=== PATIENT | male | born 1990 | race African-American/Black ===

== ENCOUNTER 2017-07-06 22:23 | Emergency (ER) | payer OTHER ==
[~2017-07-06] VITALS: Ht 188 cm; Wt 117.6 kg
[2017-07-06 22:31] VITALS: BP 151/98
--- NOTE | 2017-07-06 23:53 | NUR ---
PATIENT LEFT WITHOUT BEING SEEN BY DR. MICHELLE. NO FURTHER CARE PROVIDED FOR PATIENT.
== END 2017-07-06 23:53 | disposition left against medical advice (07) ==
LOC: MED 22:23
DX: K92.0 Hematemesis (principal); Z53.21 Procedure and treatment not carried out due to patient leaving prior to being seen by health care provider

== ENCOUNTER 2021-12-06 06:48 | Emergency (ER) | payer MEDICAID, OTHER ==
[~2021-12-06] VITALS: Ht 188 cm; Wt 128.8 kg
[2021-12-06 07:20] VITALS: BP 145/96
--- NOTE | 2021-12-06 07:39 | NUR ---
PT AMBULATED TO BED 4 WITH STEADY GAIT
--- NOTE | 2021-12-06 07:39 | NUR ---
31 Y/O MALE BIB SELF C/O MUSCLES SPASMS TO ALL EXTREMITIES X3 DAYS, STATES HE WAS SEEN AT [facility] ON TUESDAY AND TOLD "HIS POTASSIUM WAS POSSIBLY LOW" BUT NO LABS WERE DRAWN. PT STATES THAT WHEN HIS BODY "TWITCHES" THERE IS NO LOSS OF SENSATION, DENIES PAIN, DENIES COLOR CHANGE TO SKIN OF AFFECTED AREA, PT IS ABLE TO VOLUNTARILY MOVE AFFECTED EXTREMITY WITHOUT DIFFICULTY. PATIENT DENIES CP, NUMBNESS, PAIN. PMH: HTN NKA RX: HYDROCHLOROTHIAZIDE 25MG
--- NOTE | 2021-12-06 07:48 | NUR ---
DR CASILLAS AT BEDSIDE FOR EVAL
[2021-12-06 08:03] LABS: BASOPHILS % (AUTO) 0.5 % (0.0-2.0); EOSINOPHILS % (AUTO) 0.4 % (0.0-4.0); HEMATOCRIT 43.1 % (36-52); HEMOGLOBIN 14.2 g/dL (12.0-18.0); LYMPHOCYTES # (AUTO) 1.4 K/uL (2.0-11.5); LYMPHOCYTES % (AUTO) 24.5 % (20.5-51.1); MEAN CORPUSCULAR HEMOGLOBIN 27 pg (27-31); MEAN CORPUSCULAR HGB CONC 33 g/dL (33-37); MEAN CORPUSCULAR VOLUME 81.8 fL (80-94); MONOCYTES # (AUTO) 0.6 K/uL (0.8-1.0); MONOCYTES % (AUTO) 9.6 % (1.7-9.3); NEUTROPHILS # (AUTO) 3.8 K/uL (1.8-7.7); PLATELET COUNT (AUTO) 197 K/uL (140-450); RED BLOOD CELL COUNT(AUTO) 5.27 MIL/uL (4.20-6.10); RED CELL DISTRIBUTION WIDTH 13.1 % (11.6-13.7); WHITE BLOOD COUNT (AUTO) 5.8 K/uL (4.8-10.8)
[2021-12-06 08:17] LABS: ANION GAP 12.4 (8-16); ASPARTATE AMINOTRANSFERASE 30 U/L (15-37); CARBON DIOXIDE 28.3 mmol/L (21-32); CHLORIDE 101 mmol/L (98-107); CREATININE 1.3 mg/dL (0.6-1.3); GFR ARICAN-AMERICAN 82 mL/min (>90); GLUCOSE 105 mg/dL (74-106); POTASSIUM 3.7 mmol/L (3.5-5.1); SODIUM SERUM 138 mmol/L (136-145); TOTAL BILIRUBIN 0.7 mg/dL (0.0-1.0); UREA NITROGEN, BLOOD 11 mg/dL (7-18)
[2021-12-06] MEDS ORDERED: IBUP-2213 PO (08:50)
--- NOTE | 2021-12-06 08:55 | NUR ---
Patient discharged with v/s stable. Written and verbal after care instructions ABOUT MUSCLE PAIN given and explained. Patient alert, oriented and verbalized understanding of instructions. Ambulatory with steady gait. All questions addressed prior to discharge. ID band removed. Patient advised to follow up with PMD. Rx of MOTRIN given. Patient educated on indication of medication including possible reaction and side effects. Opportunity to ask questions provided and answered.
== END 2021-12-06 08:55 | disposition home or self-care (01) ==
LOC: MED 06:48
DX: M79.10 Myalgia, unspecified site (principal); I10 Essential (primary) hypertension; Z79.899 Other long term (current) drug therapy
CPT/HCPCS: 36415; 80053; 82550; 82553; 85025; 99283

== ENCOUNTER 2023-11-19 08:18 | Emergency (ER) | payer MEDICAID ==
[~2023-11-19] VITALS: Ht 188 cm; Wt 117.5 kg
[~2023-11-19 08:18] MED LIST: IBUP-2213 PO
[2023-11-19 08:21] VITALS: BP 148/93; PULSE 80; RESP 24; TEMP 97.9; O2SAT 98
[2023-11-19 08:43] VITALS: PULSE 74; RESP 16; O2SAT 97
[2023-11-19] MEDS: ALBUTEROL 0.083% 2.5 MG/3 ML NEBU INH ONE (08:43)
[2023-11-19] MEDS ORDERED: ALBU0.0912 IH (09:16)
[2023-11-19] MEDS ORDERED: OXYM15SP72 NS (09:16)
[2023-11-19] MEDS ORDERED: ROBAC PO (09:16)
[2023-11-19 09:22] VITALS: BP 135/82; PULSE 77; RESP 16; TEMP 97.9; O2SAT 98
== END 2023-11-19 09:22 | disposition home or self-care (01) ==
LOC: MED 08:18
DX: J40 Bronchitis, not specified as acute or chronic (principal); B97.89 Other viral agents as the cause of diseases classified elsewhere; I10 Essential (primary) hypertension; Z79.899 Other long term (current) drug therapy
CPT/HCPCS: 71046; 94640; 99283; J7613

== ENCOUNTER 2023-11-23 22:38 | Emergency (ER) | payer MEDICAID ==
[~2023-11-23] VITALS: Ht 188 cm; Wt 117.9 kg
[~2023-11-23 22:38] MED LIST changes: +ALBU0.0912 IH; +OXYM15SP72 NS; +ROBAC PO
[2023-11-23 23:00] VITALS: BP 141/102; PULSE 83; RESP 18; O2SAT 99
[2023-11-23 23:30] LABS: FLU A ANTIGEN negative (NEGATIVE); FLU B ANTIGEN NEGATIVE (NEGATIVE)
[2023-11-24] MEDS ORDERED: NIRM1TAB9 PO (01:35)
[2023-11-24] MEDS ORDERED: DEXT30SE7 PO (01:36)
[2023-11-24 02:07] VITALS: BP 142/97; PULSE 69; RESP 18; TEMP 98; O2SAT 100
== END 2023-11-24 02:07 | disposition home or self-care (01) ==
LOC: MED 22:38
DX: U07.1 COVID-19 (principal); B34.9 Viral infection, unspecified; J45.909 Unspecified asthma, uncomplicated; I10 Essential (primary) hypertension; Z79.899 Other long term (current) drug therapy
CPT/HCPCS: 99283